=== PATIENT | female | born 1975 | race American Indian/Alaskan Native ===

== ENCOUNTER 2016-08-10 10:12 | Inpatient (IN) | payer MEDICAID ==
--- NOTE | 2016-08-10 13:31 | Emergency Department Report ---
HPI - General Chief Complaint: Recheck/Abnormal Lab/Rx Time Seen by Provider: 08/10/16 13:19 - [facility] HPI: Jb Kelsey The patient is a 41-year-old female presenting with a chief complaint of right lower extremity pain and swelling. The patient was diagnosed with a right lower extremity DVT May 2016 and was placed on Eliquis. The patient states she ran out of Eliquis 2 weeks ago. The patient states yesterday she noticed reddish discoloration on both sides of the right lower extremity and there are tender to palpation. Patient states she also noticed increased swelling of the right lower extremity. The patient came to the ED last night and was scheduled for a right lower extremity Doppler this morning. A Doppler revealed a "semiacute DVT" in the right lower extremity Location: Right lower extremity Duration: [see above] Quality: Swelling Severity: Moderate Modifying factors: [see above] Context: [see above] Mode of transportation: Unknown ED Past Medical Hx - Past Medical History Hx Deep Vein Thrombosis: Yes - Surgical History Past Surgical History?: No - Family History Family history: no significant - Social History Smoking Status: Never Smoker Substance Use Type: None (denies illicit drug use), Alcohol (occasional) - Medications Home Medications: Home Medications Medication Instructions Recorded Confirmed Last Taken Type Ferrous Sulfate, Dried [Slow 160 mg PO DAILY 06/22/16 08/10/16 Unknown History Release Iron 160 Mg tab] Multivit-Min/Iron/Folic/Lutein 1 each PO DAILY 06/22/16 08/10/16 Unknown History [Centrum Silver Women Tablet] Apixaban [Eliquis] 5 mg PO BID 30 Days 06/23/16 08/10/16 Unknown Rx traMADol [Ultram 50 MG tab] 50 mg PO Q4HR PRN #20 tablet 06/23/16 08/10/16 Unknown Rx Enoxaparin [Lovenox] 100 mg SQ Q12HR #28 syringe 08/10/16 Unknown Rx ED Review of Systems ROS: Stated complaint: Other details as noted in HPI Comment: All other systems reviewed and negative Constitutional: denies: chills, fever Eyes: denies: eye pain, eye discharge, vision change ENT: denies: ear pain, throat pain Respiratory: denies: cough, shortness of breath, wheezing Cardiovascular: denies: chest pain, palpitations Endocrine: no symptoms reported Gastrointestinal: denies: abdominal pain, nausea, diarrhea Genitourinary: denies: urgency, dysuria, discharge Musculoskeletal: myalgia Skin: change in color Neurological: denies: headache, weakness, paresthesias Psychiatric: denies: anxiety, depression Hematological/Lymphatic: denies: easy bleeding, easy bruising Physical Exam - Physical Exam Vital Signs: Vital Signs 08/10/16 12:04 Temperature 97.8 F Pulse Rate 130 H Respiratory 18 Rate Blood Pressure 130/58 O2 Sat by Pulse 99 Oximetry Physical Exam: GENERAL: The patient is well-developed well-nourished female sitting on stretcher using cell phone not appear to be in acute distress. [] HEENT: Normocephalic. Atraumatic. Extraocular motions are intact. Patient has moist mucous membranes. NECK: Supple. Trachea midline CHEST/LUNGS: Clear to auscultation. There is no respiratory distress noted. HEART/CARDIOVASCULAR: Regular. There is no tachycardia. There is no gallop rub or murmur. ABDOMEN: Abdomen is soft, nontender. Patient has normal bowel sounds. There is no abdominal distention. SKIN: There is faint irregularly shaped region of erythema to the medial and lateral aspect of the right lower extremity. There is no edema. There is no diaphoresis. NEURO: The patient is awake, alert, and oriented. The patient is cooperative. The patient has normal speech MUSCULOSKELETAL: There is no evidence of acute injury. ED Course Vital Signs 08/10/16 12:04 Temperature 97.8 F Pulse Rate 130 H Respiratory 18 Rate Blood Pressure 130/58 O2 Sat by Pulse 99 Oximetry ED Medical Decision Making - Lab Data Labs from last night reviewed - Radiology Data Radiology results: report reviewed (right lower extremity Doppler), image reviewed (right lower extremity Doppler) Right lower extremity Doppler (read by technologist)-semi-acute DVT - Differential Diagnosis DVT Critical care attestation.: If time is entered above; I have spent that time in minutes in the direct care of this critically ill patient, excluding procedure time. ED Disposition Clinical Impression: Deep vein thrombosis Disposition: OP ADMITTED IP TO THIS HOSP Is pt being admited?: Yes Does the pt Need Aspirin: No Condition: Fair Referrals: PRIMARY CARE, [Primary Care Provider] - 3-5 Days Time of Disposition: 13:30
--- NOTE | 2016-08-10 13:54 | Admit Criteria Form ---
Admission Criteria Documentation: DEEP VENOUS THROMBOSIS OF LOWER EXTREMITIES Clinical Indications for Admission to Inpatient Care ( Place 'X' for any and all applicable criteria): Admission is indicated for ANY ONE of the following (1)(2)(3)(4): [ ]I. Documented extensive thrombosis (e.g., clot in vena cava or above iliofemoral bifurcation) [ ]II. Limb-threatening thrombosis (e.g., phlegmasia cerulea dolens) [ ]III. Active bleeding [ ]IV. Recent surgery (e.g., within 6 weeks) [ ]V. Active peptic ulcer disease [ ]. Thrombosis while on anticoagulation [ ]VII. [X ]VIII. Appropriate monitoring and therapy cannot be provided in home or outpatient setting [ ]IX. Thrombolysis (e.g., catheter-directed) or pharmaco mechanical thrombectomy needed (3) [ ]X. Vena cava filter placement planned (3) [ ]XI. Severely diminished cardiopulmonary reserve (e.g., pulmonary hypertension) [ ]XII. Severe renal failure (e.g., GFR less than 30 mL/min/1.73m2 (0.5 mL/sec /1.73m2)) [ ]XIII. Known clotting abnormality or deficiency (antithrombin III, protein C , or protein S) [ ]XIV. History of heparin-induced thrombocytopenia [ ]XV . Personal or family history of bleeding tendency or familial bleeding disorder that requires inpatient admission rather than observation care (Also use Deep Venous Thrombosis of Lower Extremities: Observation Care as appropriate) because of ANY ONE of the following: [ ]a) Significant allergic, autoimmune (thrombocytopenia), or coagulopathic reaction occurs in response to anticoagulation [ ]b) Other significant finding or clinical condition judged not to be within the scope of observation care Extended stay beyond goal length of stay may be needed for(1)(19): [ ]a) Hemorrhage or recent surgery(3) [ ]b) Inadequate oral anticoagulation [ ]c) Recurrent thromboembolism(3) [ ]d) Heparin-induced thrombocytopenia(14) The original [facility] content created by [facility] has been revised. The portions of the content which have been revised are identified through the use of italic text or in bold, and [facility] has neither reviewed nor approved the modified material. All other unmodified content is copyright [facility]. Please see references footnoted in the original [facility] edition 2016 Admission Criteria Met: Yes
--- NOTE | 2016-08-10 21:35 | History and Physical Report ---
History of Present Illness Date of examination: 08/10/16 Date of admission: 08/10/16 13:31 Medications and Allergies Allergies Allergy/AdvReac Type Severity Reaction Status Date / Time Sulfa (Sulfonamide Allergy Rash Verified 08/11/15 10:27 Antibiotics) Home Medications Medication Instructions Recorded Confirmed Last Taken Type Ferrous Sulfate, Dried [Slow 160 mg PO DAILY 06/22/16 08/10/16 2 Weeks Ago History Release Iron 160 Mg tab] Multivit-Min/Iron/Folic/Lutein 1 each PO DAILY 06/22/16 08/10/16 2 Weeks Ago History [Centrum Silver Women Tablet] Apixaban [Eliquis] 5 mg PO BID 30 Days 06/23/16 08/10/16 2 Weeks Ago Rx traMADol [Ultram 50 MG tab] 50 mg PO Q4HR PRN #20 tablet 06/23/16 08/10/16 2 Weeks Ago Rx Enoxaparin [Lovenox] 100 mg SQ Q12HR #28 syringe 08/10/16 08/10/16 1 Day Ago Rx Review of Systems All systems: negative Exam - Constitutional Vitals: Temp Pulse Resp BP Pulse Ox 98.3 F 67 16 108/63 99 08/10/16 18:17 08/10/16 18:17 08/10/16 18:17 08/10/16 18:17 08/10/16 18:17 General appearance: Present: no acute distress, well-nourished - EENT Eyes: Present: PERRL ENT: hearing intact, clear oral mucosa - Neck Neck: Present: supple, normal ROM - Respiratory Respiratory effort: normal Respiratory: bilateral: CTA - Cardiovascular Heart Sounds: Present: S1 & S2. Absent: rub, click - Extremities Extremities: pulses symmetrical, No edema Peripheral Pulses: within normal limits - Abdominal General gastrointestinal: Present: soft, non-tender, non-distended, normal bowel sounds Female genitourinary: Present: normal - Integumentary Integumentary: Present: clear, warm, dry - Musculoskeletal Musculoskeletal: gait normal, strength equal bilaterally - Psychiatric Psychiatric: appropriate mood/affect, intact judgment & insight - Neurologic Neurologic: CNII-XII intact, moves all extremities Assessment and Plan - Patient Problems (1) Deep vein thrombosis Current Visit: Yes Status: Acute Qualifiers: DVT location: D Affected thrombotic vein of extremity: A Laterality: L Chronicity: C
[2016-08-10] MEDS ORDERED: ULTRAM PO PRN (21:37)
[2016-08-10] MEDS ORDERED: LOVENOX SUB-Q SCH ×2 (22:00)
[2016-08-10] MEDS: LOVENOX SUB-Q SCH (23:22)
[2016-08-11 08:52] LABS: INR 1.11 (0.87-1.13)
[2016-08-11] MEDS: LOVENOX SUB-Q SCH (09:18)
--- NOTE | 2016-08-11 09:33 | Discharge Summary ---
Providers - Providers Date of Admission: 08/10/16 13:31 Date of discharge: 08/11/16 Attending physician: SAÚL WHITESIDE MD Primary care physician: TICK SEWER Hospitalization Reason for admission: Right lower extremity DVT Condition: Fair Pertinent studies: Doppler U/S of the right leg Hospital course: Patient was admitted to the hospital after she presented pain and swelling of the right leg. Doppler U/S showed DVT per ER doc documentation. The official Doppler read is not back yet. The patient has previous history of DVT and was on eliquis which she discontinued 2 weeks ago. 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 The patient will be discharged with Eliquis. Disposition: DISCHARGED TO HOME OR SELFCARE Time spent for discharge: 32 minutes - Discharge Diagnoses (1) Deep vein thrombosis Status: Acute Qualifiers: DVT location: D Affected thrombotic vein of extremity: A Laterality: L Chronicity: C (2) Anemia Status: Acute Qualifiers: Anemia type: unspecified type Iron deficiency anemia type: I Vitamin B12 deficiency anemia type: V Folate deficiency anemia type: F Bone marrow failure anemia type: B Hemolytic anemia type: H Other causes of anemia: O Qualified Code(s): D64.9 - Anemia, unspecified (3) Right leg pain Status: Acute Core Measure Documentation - Palliative Care Palliative Care/ Comfort Measures: Not Applicable - Core Measures Any of the following diagnoses?: DVT/PE - VTE Discharge Requirements Deep Vein Thrombosis/Pulmonary Embolism Present on Admission: Yes Has pt received <5 days of overlap therapy or INR<2.0: No (patient will be D/ pamela with eliquis and no overlap is indicated) Anticoagulant overlap therapy prescribed at discharge: No Contraindication No Overlap Therapy order at DC: Not Indicated Exam - Physical Exam Narrative exam: Not in cardiopulmonary distress. The patient appeared well nourished and normally developed. Vital signs as documented. Head exam is unremarkable. No scleral icterus . Neck is without jugular venous distension, thyromegaly, or carotid bruits. Lungs are clear to auscultation. Cardiac exam reveals regular rate and Rhythm. First and second heart sounds normal. No murmurs, rubs or gallops. Abdominal exam reveals normal bowel sounds, no masses, no organomegaly and no aortic enlargement. Extremities are tenderness and swelling on the right leg. FLUME TENDER: Alert and oriented 3. No focal weakness. - Constitutional Vitals: Temp Pulse Resp BP Pulse Ox 98.1 F 68 18 114/57 99 08/11/16 00:00 08/11/16 00:00 08/11/16 00:00 08/11/16 00:00 08/11/16 00:00 Plan Activity: no restrictions Weight Bearing Status: Full Weight Bearing Diet: regular Follow up with: PRIMARY CARE,MD [Primary Care Provider] - 7 Days (Patient stated she will find a PCP.) Prescriptions: Apixaban [Eliquis] 5 mg PO BID #60 tablet
[2016-08-11] MEDS ORDERED: FEOSOL PO SCH (10:00)
[2016-08-11] MEDS ORDERED: NON-FORMULARY (Multivit-Min/Iron/Folic/Lutein [Centrum Silver Women Tablet] 1 EACH) PO SCH (10:00)
[2016-08-11] MEDS ORDERED: THERAGRAN Tab PO SCH (10:00)
[2016-08-11] MEDS ORDERED: FERROUS SULFATE DRIED 160 MG PO SCH (10:00)
[2016-08-11 11:23] VITALS: BP 100/60
== END 2016-08-11 13:00 | disposition home or self-care (01) | DRG 301 ==
LOC: ED 10:12 → VAS 10:12 → EDSTATUS 11:56 → 3A 13:31
PROVIDERS: ADMIT Internal Medicine; ATTEND Internal Medicine
DX: I82.402 Acute embolism and thrombosis of unspecified deep veins of left lower extremity (principal); D64.9 Anemia, unspecified; Z88.2 Allergy status to sulfonamides; Z79.899 Other long term (current) drug therapy; Z79.01 Long term (current) use of anticoagulants
CPT/HCPCS: 36415; 85610; J1650